=== PATIENT | female | born 1995 | race Caucasian/White ===

== ENCOUNTER → 2025-06-12 | Outpatient (CLI) | payer BC, SELFPAY ==
--- NOTE | 2025-06-12 15:30 | XR_ITS ---
Examination: Abdomen sonogram, complete Date and time of exam: June 12, 2025, 1416 hours INDICATIONS: Right upper abdominal pain recurrent beginning 3 months ago. Technique: Multiple real-time grayscale transabdominal sonographic images of the abdomen have been obtained. Findings: Multiple gallstones, the largest 9 mm Normal gallbladder wall Normal common bile duct 0.2 cm Pancreatic head 2.5 cm Aorta not enlarged Liver 16.4 cm fatty infiltration Normal hepatopetal portal venous flow Patent IVC Right kidney 10.0 cm renal cortex 1.8 cm Left kidney 10.4 cm renal cortex 2.0 cm Spleen 9.8 cm IMPRESSION: Cholelithiasis, negative for cholecystitis
== END | disposition home or self-care (01) ==
LOC: CDIM 13:39
PROVIDERS: PCP Family Medicine; Referring Provider Surgery; Visit Provider Surgery
DX: K80.20 Calculus of gallbladder without cholecystitis without obstruction (principal)
CPT/HCPCS: 76700